=== PATIENT | male | born 1950 | race Hispanic/Latino ===

== ENCOUNTER 2024-02-26 09:51 | Day surgery (SDC) | payer OTHER ==
[~2024-02-26] VITALS: Ht 162.6 cm; Wt 62.6 kg
[2024-02-26] VITALS (10 sets, daily range): BP systolic 85–117; BP diastolic 43–73; PULSE 62–87; RESP 13–16; TEMP 97.8–99
[2024-02-26] MEDS: 0.9%NACL 1000ML 1,000 ML IV ONE (12:07)
[2024-02-26] MEDS ORDERED: INSLAN SQ (12:21)
[2024-02-26] MEDS ORDERED: LEVO50CA4 PO (12:21)
[2024-02-26] MEDS ORDERED: MILK1CAP4 PO (12:21)
[2024-02-26] MEDS ORDERED: ESOM40CA66 PO (12:21)
[2024-02-26] MEDS ORDERED: SACU1TAB PO (12:21)
[2024-02-26] MEDS ORDERED: METF-446 PO (12:21)
[2024-02-26] MEDS ORDERED: SPIR50TA PO (12:21)
[2024-02-26] MEDS ORDERED: ROSU5TAB43 PO (12:21)
[2024-02-26] MEDS ORDERED: FAMO40TA7 PO (12:21)
[2024-02-26] MEDS ORDERED: FURO20TA4 PO (12:21)
[2024-02-26] MEDS ORDERED: proPOFol 10 MG/ML 20ML VIAL IV ONE (13:02)
[2024-02-26] MEDS ORDERED: LIDOCAINE PF 100MG/5ML (2%) SYRINGE 5ML ONE (13:02)
== END 2024-02-26 14:21 | disposition home or self-care (01) ==
LOC: ENDO 09:51 → DAH 09:51 → ENDO 14:21
PROVIDERS: ATTEND Internal Medicine Gastroenterology
DX: K22.2 Esophageal obstruction (principal); K74.60 Unspecified cirrhosis of liver; R18.8 Other ascites; R93.2 Abnormal findings on diagnostic imaging of liver and biliary tract; D50.9 Iron deficiency anemia, unspecified; K52.839 Microscopic colitis, unspecified; K21.00 Gastro-esophageal reflux disease with esophagitis, without bleeding; K44.9 Diaphragmatic hernia without obstruction or gangrene; I10 Essential (primary) hypertension; E11.9 Type 2 diabetes mellitus without complications; M19.90 Unspecified osteoarthritis, unspecified site; M81.0 Age-related osteoporosis without current pathological fracture; F41.9 Anxiety disorder, unspecified; F32.A Depression, unspecified; Z79.82 Long term (current) use of aspirin; Z79.4 Long term (current) use of insulin; Z79.899 Other long term (current) drug therapy; Z98.890 Other specified postprocedural states
CPT/HCPCS: 43220; 82948 ×2; J7030; J2001; J2704; C1726; A4620; A4215 ×2; A4223; A4222; A4221; A4663; A4606; J3490